=== PATIENT | female | born 1945 | race Caucasian/White ===

== ENCOUNTER 2019-05-09 12:27 | Inpatient (IN) | payer MEDICARE ==
[~2019-05-09] VITALS: Ht 170.2 cm; Wt 74.2 kg
[2019-05-09] MEDS ORDERED: Dyazide 37.5-21 EACH PO (12:50)
[2019-05-09] MEDS ORDERED: ALLO300 PO (12:51)
[2019-05-09] MEDS ORDERED: SYNTHROID175 MCG PO (12:51)
[2019-05-09] MEDS ORDERED: Pravachol40 MG PO (12:51)
[2019-05-09] MEDS ORDERED: ATEN100 PO (12:51)
[2019-05-09] MEDS ORDERED: Aspir 8181 MG PO (12:52)
[2019-05-09] MEDS ORDERED: ALPR.25 PO (12:52)
[2019-05-09] MEDS ORDERED: Mirtazapine15 M1 SL (12:52)
[2019-05-09] MEDS ORDERED: NAPR500EC PO (12:52)
[2019-05-09 12:59] LABS: BASOPHILS ABSOLUTE AUTO 0.03 K/mm3 (0.00-0.23); BASOPHILS PERCENT AUTO 1 % (0-2); EOSINOPHILS ABSOLUTE AUTO 0.11 K/mm3 (0.00-0.68); EOSINOPHILS PERCENT AUTO 2 % (0-6); Hemoglobin 15.1 g/dL (11.5-16.0); IMMATURE GRAN ABSOLUTE AUTO 0.02 K/mm3 (0.00-0.10); IMMATURE GRAN PERCENT AUTO 0 % (0-1); LYMPHOCYTES ABSOLUTE AUTO 1.94 K/mm3 (0.84-5.20); LYMPHOCYTES PERCENT AUTO 38 % (21-46); MONOCYTES PERCENT AUTO 10 % (4-13); Mean Corpuscular HGB 29.4 pg (26.0-34.0); Mean Corpuscular HGB Conc 33.6 g/dL (31.5-36.5); Mean Corpuscular Volume 88 fL (80-100); NEUTROPHILS ABSOLUTE AUTO 2.47 K/mm3 (1.96-9.15); NEUTROPHILS PERCENT AUTO 49 % (41-73); RDW Coefficient Variation 13.9 % (11.7-14.2); RDW Standard Deviation 43.3 fL (35.1-46.3); Red Blood Cell Count 5.14 M/mm3 (3.80-5.20); White Blood Cell Count 5.07 K/mm3 (4.00-11.30)
[2019-05-09 13:05] LABS: Mean Platelet Volume 10.7 fL (9.1-12.4); Platelet Count 105 K/mm3 (150-400)
[2019-05-09 13:19] LABS: Albumin/Globulin Ratio 1.1 (0.8-1.8); Bilirubin, Total 0.8 mg/dL (0.1-1.0); Bun/Creatinine Ratio 15.6 (12.0-20.0); Calcium, Blood 9.6 mg/dL (8.5-10.1); Creatinine, Blood 1.22 mg/dL (0.40-1.00); Globulin, Blood 3.6 g/dL (2.2-4.0); Potassium, Blood 3.7 mmol/L (3.5-5.5); Total Protein, Blood 7.6 g/dL (6.4-8.2)
[2019-05-09 13:24] LABS: Troponin I 1.25 ng/mL (0.000-0.040)
--- NOTE | 2019-05-09 14:55 | NUR ---
PATIENT ARRIVED TO ROOM ICU 11 AFTER REPORT WAS CALLED BY GINETTE CHANDRA, FROM ED, PATIENT ARRIVED VIA STRETCHER, AND WAS ABLE TO STAND AND PIVOT TO BED, REPORTED NO DIZIINESS/LIGHTHEADEDNESS, DENIES CHEST PAIN/PRESSURE, REPORTS NO SOB, PATIENT IS ALERT AND ORIENTED, LUNG SOUNDS CLEAR ON RA WITH O2 IN MID TO UPPER 90'S, SR/SB WITH HR IN 50'S TO 60'S, BOWEL TONES PRESENT, PATIENT IS ABLE TO USE BSC TO URINATE, PEDAL PULSES PRESENT AND STRONG, SCD'S APPLIED, TEMP ON ARRIVAL WAS 98.1, AFEBRILE, NO BLOOD PRESSURE AND VENIPUNTURES ON RIGHT UPPER EXTREMITY D/T HISTORY OF RIGHT SIDED LUMPECTOMY, PATIENT IS PCU STATUS AND HAS 18G IN LATERAL LEFT AC, HEPARING DRIP IS TO BE STARTED ONCE SBP'S ARE BELOW 160, PHARMACY AWARE AND WILL SEND HEPARIN WHEN NOTIFIED, PATIENT IS A GOOD HISTORIAN, AT BEDSIDE, HE IS LEGALLY BLIND AND USES A CANE, NEEDS GUIDANCE, PATIENT WAS PLACED ON MONITOR, ORIENTED TO ROOM AND NEW ENVIRONMENT, CALL LIGHT GIVEN AND EXPLAINED, PATIENT VERBALIZED UNDERSTANDING, LAB IN TO DRAW ORDERED CHEMISTRIES, U/S NEEDED TO FIND VEIN AND OBTAIN BLOOD SAMPLE, WATER GIVEN, PATIENT IS ABLE TO SWALLOW WITHOUT ANY PROBLEMS, BUT PATIENT STATED THAT SHE HAS A HARD TIME WITH PILLS, CALL LIGHT IN REACH, WILL CONTINUE TO MONITOR.
[2019-05-09 16:24] LABS: International Normalized Ratio 0.99; Prothrombin Time Results 10.5 Sec (9.7-11.5)
--- NOTE | 2019-05-09 17:50 | NUR ---
SHIFT SUMMARY NOTE: PATIENT HAD NO MORE C/O CHEST PAIN PRESSURE, BACK PAIN OR LEFT ARM PAIN, ALERT AND ORIENTED, NEEDS SBA ONLY, UP TO BSC, URINATES WITHOUT ANY PROBLEM, HAD BM, SBP ELEVATED WHEN FIRST ADMITTED, RECEIVED HYDRALAZINE, SBP'S IN 150'S, HEPARIN DRIP STARTED ORDERED, AT 13 UNITS AT THIS TIME, PATIENT ATE DINNER WITH GOOD APPETITE, NO PROBLEMS SWALLOWING, AT BEDSIDE, AWAITING 'S SON TO ARRIVE AND TAKE HOME, DR. QUINTANILLA WAS CONSULTED IN ER, PATIENT RESTING COMFORTABLY, FOR DETAILS SEE SHIFT ASSESSMENT DOCUMENTATION AND NURSES NOTES, CALL LIGHT IN REACH, WILL CONTINUE TO MONITOR AND GIVE REPORT TO ONCOMING SHIFT.
--- NOTE | 2019-05-09 18:50 | NUR ---
DR. QUINTANILLA WAS CALLED FOR CARDIOLOGY CONSULT, HE ASKED ABOUT PATIENT CONDITION AND WHY THEY WERE IN ICU, THEN ASKED FOR DR. ABDI'S NUMBER, TWO MINUTES LATER DR. ABDI CALLED AND ASKED THIS RN TO PASS ON TO NOC SHIFT TO LET DAY SHIFT CALL CARDIOLOGY CONSULT IN AM.
--- NOTE | 2019-05-09 21:23 | NUR ---
PT RESTING IN BED. C/O NOT SLEEPING MUCH LAST NIGHT. GAVE NIGHT MEDS AND DID PM CARE EARLY TO TRY TO AID SLEEP. DENIES PAIN AND SOB. CALLED SHERIE AVILA RESEARCH PROGRAM INTERN WITH [employer]. NEW ORDERS FOR PLAVIX. PT EDUCATED ABOUT PLAVIX. HEPARIN GTT RUNNING AT 13UNITS/KG/HR. WILL BE STAYING THE NIGHT WITH PT. MADE COTT UP FOR HIM. NO SIGN OF DISTRESS.
--- NOTE | 2019-05-10 02:26 | NUR ---
PT MOVED TO PCU 1. ASSISTED TO ROOM AND SET UP WITH ALEXANDR. INCREASED HEPARIN GTT AND GAVE BOLUS PER PHARMACY BEFORE PT LEFT. REPORT GIVEN TO RANDELL PENG.
--- NOTE | 2019-05-10 06:41 | NUR ---
SUMMARY PT IS A&O X4. RESTING COMFORTABLY. SHE CONTINUES TO DENY CP/SOB. PT IS ON ROOM AIR. HEPERIN GTT INFUSING @ 15 UNITS/KG/HR. PT'S IS AT THE BEDSIDE. CALL LAM WARE. REPORT WILL BE GIVEN TO DAY RN
[2019-05-10 09:04] LABS: Bun/Creatinine Ratio 18.1 (12.0-20.0); Calcium, Blood 8.9 mg/dL (8.5-10.1); Creatinine, Blood 1.05 mg/dL (0.40-1.00); Potassium, Blood 3.1 mmol/L (3.5-5.5)
--- NOTE | 2019-05-10 12:58 | NUR ---
PT TO [facility]ART [facility]ENTER TO HAVE PROCEDURE IN OWN BED WITH HEART CENTER STAFF. COMMERCIAL COLLECTOR AWARE AND AT ROOM. FAMILY PRESENT.
--- NOTE | 2019-05-10 14:21 | NUR ---
PT BACK FROM PROCEDURE WITH HEART CENTER STAFF, STREET SWEEPER TO ROOM. PT TR BAND APPEARS WNL, SOFT NON-TENDER, NO BRUISING NOTED. FAMILY PRESENT. VSS. OTHER STAFF REPORT THAT HEPARIN IS NOT RESTARTED AT THIS POINT.
--- NOTE | 2019-05-10 18:02 | NUR ---
HOSE STRIPPER BEEN ASSISTING WITH TR BAND AND TRANSFER INCLUDING PAPERWORK.
--- NOTE | 2019-05-10 18:17 | NUR ---
TRANSFER OUT AT 18:02: PT A/O. PT BEING TRANSFERRED TO [facility]. PT RECIEVING RIDE FROM [facility]. HEPARIN GTT STARTED AT PREVIOUS RATE PRIOR TO PT LEAVING PER DR OWUSU. TR BAND BEEN DEFLATED 8CC WITH ONLY SPECK OF BLOOD THAT HAS BEEN UNCHANGED SINCE START OF DEFLATION. TRANSPORT CONCRETE ANALYST TRAINED IN TR BAND, GIVEN SYRINGE FOR INFLATION/DEFLATION. OTHER FAMILY ALSO PRESENT WHEN PT LEAVING, BELONGINGS SENT WITH TRANSPORT/FAMILY. REPORT GIVEN TO LILIA AT [facility].
== END 2019-05-10 18:26 | disposition short-term general hospital (02) | DRG 281 ==
LOC: ER 12:27 → PCU 13:39 → ICUW 13:39 → PCU 15:42
PROVIDERS: Emergency Medicine; Pharmacist; ADMIT Family Medicine
PROC: 4A023N7 Measurement of Cardiac Sampling and Pressure, Left Heart, Percutaneous Approach (ICD-10-PCS; principal; 2019-05-10)
PROC: B2111ZZ Fluoroscopy of Multiple Coronary Arteries using Low Osmolar Contrast (ICD-10-PCS; 2019-05-10)
PROC: B2151ZZ Fluoroscopy of Left Heart using Low Osmolar Contrast (ICD-10-PCS; 2019-05-10)
DX: I21.4 Non-ST elevation (NSTEMI) myocardial infarction (principal); I16.1 Hypertensive emergency; E11.51 Type 2 diabetes mellitus with diabetic peripheral angiopathy without gangrene; M10.9 Gout, unspecified; K58.9 Irritable bowel syndrome, unspecified; Z90.49 Acquired absence of other specified parts of digestive tract; Z79.82 Long term (current) use of aspirin; Z85.09 Personal history of malignant neoplasm of other digestive organs; Z87.891 Personal history of nicotine dependence; E03.9 Hypothyroidism, unspecified; N18.3 Chronic kidney disease, stage 3 (moderate); E11.22 Type 2 diabetes mellitus with diabetic chronic kidney disease; D69.6 Thrombocytopenia, unspecified; E78.5 Hyperlipidemia, unspecified; E87.6 Hypokalemia; Z90.89 Acquired absence of other organs; I12.9 Hypertensive chronic kidney disease with stage 1 through stage 4 chronic kidney disease, or unspecified chronic kidney disease
CPT/HCPCS: 36415; 71046; 80048; 80053; 82947; 84443; 84484; 85025; 85347; 85610; 85730; 93005; 93010; 93306; 93458; 96374; 96375; 99152; 99153; 99285-25; A9270; C1769; C1894; J0360; J1644; J1815; J2250; J2405; J3010; J7030; Q9967